=== PATIENT | male | born 1985 | race African-American/Black ===

== ENCOUNTER 2017-11-14 00:15 | Emergency (ER) | payer OTHER | END 2017-11-14 01:29 | disposition home or self-care (01) | LOC: FTE 00:15 | DX: H60.91 Unspecified otitis externa, right ear (principal); J06.9 Acute upper respiratory infection, unspecified | CPT/HCPCS: 99284; Z7502 ==

== ENCOUNTER 2018-01-03 05:41 | Emergency (ER) | payer OTHER ==
[2018-01-03] MEDS: ALBUTEROL 0.083% (NEB) 2.5 MG/3 ML AMP NEB (06:23)
[2018-01-03] MEDS: IPRATROPIUM (NEB) 0.5 MG/2.5 ML AMP NEB (06:27)
[2018-01-03] MEDS: AZITHROMYCIN 250 MG TAB PO (06:32)
[2018-01-03] MEDS: CEFTRIAXONE 250 MG INJ IM (06:33)
[2018-01-03] MEDS: LIDOCAINE 1% (MDV) 10 ML INJ INJ (06:33)
[2018-01-03 07:36] LABS: ADD UMIC YES; UR ASCORBIC ACID NEGATIVE (NEGATIVE); UR BACTERIA FEW /HPF (NONE SEEN); UR BILIRUBIN (Dip) NEGATIVE (NEGATIVE); UR BLOOD (Dip) NEGATIVE (NEGATIVE); UR CLARITY SLIGHTLY CLOUDY (CLEAR); UR COLOR YELLOW (YELLOW); UR GLUCOSE (Dip) NEGATIVE (NEGATIVE); UR KETONES (Dip) NEGATIVE (NEGATIVE); UR LEUKOCYTE ESTERASE (Dip) 3+ Leu/ul (NEGATIVE); UR MUCUS FEW /HPF (NONE SEEN); UR NITRITE (Dip) NEGATIVE (NEGATIVE); UR RBC 6 /HPF (0-5); UR SPECIFIC GRAVITY (Dip) 1.026 (1.003-1.030); UR TOTAL PROTEIN (Dip) 1+ mg/dl (NEGATIVE); UR UROBILINOGEN (Dip) NEGATIVE (NEGATIVE); UR WBC > 182 /HPF (0-5)
== END 2018-01-03 08:10 | disposition home or self-care (01) ==
LOC: FTE 05:41
DX: J06.9 Acute upper respiratory infection, unspecified (principal); N39.0 Urinary tract infection, site not specified
CPT/HCPCS: 71045; 81001; 87086; 87591; 94664; 96372; 99284-25

== ENCOUNTER 2018-05-29 11:16 | Emergency (ER) | payer SELFPAY, OTHER ==
[2018-05-29] MEDS: predniSONE 20 MG TAB PO (11:50)
[2018-05-29] MEDS: ALBUTEROL 0.5% (NEB) 2.5 MG/0.5 ML AMP INH (11:54)
[2018-05-29] MEDS: IPRATROPIUM (NEB) 0.5 MG/2.5 ML AMP INH (11:55)
== END 2018-05-29 13:40 | disposition home or self-care (01) ==
LOC: FTE 11:16
DX: J20.9 Acute bronchitis, unspecified (principal)
CPT/HCPCS: 71045; 94644; 99284-25

== ENCOUNTER 2018-08-10 04:39 | Emergency (ER) | payer SELFPAY ==
[2018-08-10] MEDS: DEXAMETHASONE 10 MG/ML 1 ML INJ PO (05:04)
[2018-08-10] MEDS: ALBUTEROL 0.083% (NEB) 2.5 MG/3 ML AMP NEB (05:10)
== END 2018-08-10 05:36 | disposition home or self-care (01) ==
LOC: FTE 04:39
DX: J40 Bronchitis, not specified as acute or chronic (principal); F17.210 Nicotine dependence, cigarettes, uncomplicated
CPT/HCPCS: 94664; 99283

== ENCOUNTER 2018-09-14 05:21 | Emergency (ER) | payer MEDICAID ==
[2018-09-14 07:06] LABS: ADD UMIC YES; UR ASCORBIC ACID NEGATIVE (NEGATIVE); UR BILIRUBIN (Dip) NEGATIVE (NEGATIVE); UR BLOOD (Dip) NEGATIVE (NEGATIVE); UR CLARITY SLIGHTLY CLOUDY (CLEAR); UR COLOR YELLOW (YELLOW); UR GLUCOSE (Dip) NEGATIVE (NEGATIVE); UR KETONES (Dip) NEGATIVE (NEGATIVE); UR LEUKOCYTE ESTERASE (Dip) 3+ Leu/ul (NEGATIVE); UR MUCUS FEW /HPF (NONE SEEN); UR NITRITE (Dip) NEGATIVE (NEGATIVE); UR RBC 13 /HPF (0-5); UR SPECIFIC GRAVITY (Dip) 1.021 (1.003-1.030); UR TOTAL PROTEIN (Dip) NEGATIVE (NEGATIVE); UR UROBILINOGEN (Dip) NEGATIVE (NEGATIVE); UR WBC > 182 /HPF (0-5)
[2018-09-14] MEDS: AZITHROMYCIN 250 MG TAB PO (07:43)
[2018-09-14] MEDS: CEFTRIAXONE 250 MG INJ IM (07:44)
== END 2018-09-14 07:54 | disposition home or self-care (01) ==
LOC: FTE 05:21
DX: N30.01 Acute cystitis with hematuria (principal); F17.210 Nicotine dependence, cigarettes, uncomplicated
CPT/HCPCS: 81001; 87086; 96372; 99284-25

== ENCOUNTER 2019-03-15 00:52 | Emergency (ER) | payer OTHER, MEDICAID ==
[2019-03-15] MEDS: predniSONE 20 MG TAB PO (01:51)
[2019-03-15] MEDS: IPRATROPIUM (NEB) 0.5 MG/2.5 ML AMP NEB (01:53)
[2019-03-15] MEDS: ALBUTEROL 0.083% (NEB) 2.5 MG/3 ML AMP NEB (01:53)
== END 2019-03-15 03:05 | disposition home or self-care (01) ==
LOC: FTE 00:52
DX: R05 Cough (principal); F17.210 Nicotine dependence, cigarettes, uncomplicated
CPT/HCPCS: 94664; 99283-25